=== PATIENT | female | born 1980 | race Caucasian/White ===

== ENCOUNTER → 2019-05-25 | Outpatient (CLI) | payer MEDICARE ==
--- NOTE | 2019-05-25 15:29 | 2DMMODE ---
[place] [address] 2 D/M-MODE ECHOCARDIOGRAM Name: SHARDA TREVIÑO Room: [facility]#: [id number] Admission: 05/25/19 Attend Phys: Physician not on s Discharge: Date of : 76 Date of Service: 05/25/19 1528 Report #: [id number] THIS REPORT FOR: //name// APPROVED REPORT Study performed: 05/25/2019 13:17:34 EXAM: Comprehensive 2D, Doppler, and color-flow Echocardiogram Patient Location: Out-Patient BSA: 1.56 HR: 72 bpm BP: 110/70 mmHg Other Information Study Quality: Good Technically limited study due to Breast implants- off axis apical views. Indications Abnormal ECG 2D Dimensions IVSd: 8.86 (7-11mm) LVOT Diam: 19.19 (18-24mm) LVDd: 46.46 mm PWd: 8.00 (7-11mm) Ascending Ao: 26.98 (22-36mm) LVDs: 27.27 (25-40mm) Aortic Root: 20.43 mm Volumes Left Atrial Volume (Systole) LA ESV Index: 11.70 mL/m2 Aortic Valve AoV Peak Ashok.: 1.12 m/s AO Peak Gr.: 5.06 mmHg LVOT Max P.73 mmHg AO Mean Gr.: 2.94 mmHg LVOT Mean P.40 mmHg LVOT Max V: 0.83 m/s AO V2 VTI: 22.07 cm LVOT Mean V: 0.55 m/s SCAR (VTI): 2.21 cm2 LVOT V1 VTI: 16.89 cm Mitral Valve E/A Ratio: 1.26 MV Decel. Time: 182.33 ms MV E Max Ashok.: 0.60 m/[place] [address] 2 D/M-MODE ECHOCARDIOGRAM Name: SHARDA TREVIÑO Room: [facility]#: [id number] Admission: 05/25/19 Attend Phys: Physician not on s Discharge: Date of : 76 Date of Service: 05/25/19 1528 Report #: [id number] MV PHT: 52.88 ms MVA (PHT): 4.16 cm2 TDI E/Lateral E': 3.16 E/Medial E': 5.00 Medial E' Ashok.: 0.12 m/s Lateral E' Ashok.: 0.19 m/s Pulmonary Valve PV Peak Ashok.: 0.85 m/s PV Peak Gr.: 2.89 mmHg Left Ventricle The left ventricle is normal size. There is normal LV segmental wall motion. There is normal left ventricular wall thickness. Left ventricular systolic function is normal. The left ventricular ejection fraction is within the normal range. LVEF is 55-60%. The left ventricular diastolic function is normal. Right Ventricle The right ventricle is normal size. The right ventricular systolic function is normal. Atria The left atrium size is normal. The right atrium size is normal. Aortic Valve The aortic valve is normal in structure. No aortic regurgitation is present. There is no aortic valvular stenosis. Mitral Valve The mitral valve is normal in structure. Trace mitral valve regurgitation noted. No evidence of mitral valve stenosis. Tricuspid Valve The tricuspid valve is normal in structure. There is no tricuspid valve regurgitation noted. Pulmonic Valve The pulmonary valve is normal in structure. There is no pulmonic valvular regurgitation. Great Vessels The aortic root is normal in size. IVC is normal in size and collapses >50% [place] [address] 2 D/M-MODE ECHOCARDIOGRAM Name: SHARDA TREVIÑO Room: [facility]#: [id number] Admission: 05/25/19 Attend Phys: Physician not on s Discharge: Date of : 76 Date of Service: 05/25/19 1528 Report #: [id number] Pericardium There is no pericardial effusion. <Conclusion> Left ventricular systolic function is normal. The left ventricular ejection fraction is within the normal range. <ELECTRONICALLY SIGNED> By: Daryl Butcher MD, FACC 05/25/19 1528 1528 1528 Daryl Butcher MD, [facility] /INF
== END ==
LOC: M.CRD 05-22 13:00
DX: R94.31 Abnormal electrocardiogram [ECG] [EKG] (principal)